=== PATIENT | female | born 1995 | race African-American/Black ===

== ENCOUNTER 2019-11-27 07:14 | Outpatient (CLI) | payer OTHER ==
--- NOTE | 2019-11-27 13:40 | MRI Report ---
Reason: RT KNEE PAIN Procedure Date: 11/27/2019 Accession Number: [id number] / [id number] Procedure: MRI - Knee RT W/O CPT Code: Final Report FULL RESULT: EXAM: RIGHT KNEE MRI WITHOUT CONTRAST EXAM DATE: 11/27/2019 08:20 AM. CLINICAL HISTORY: Right knee pain. Previous patellar dislocation. Previous knee surgery. COMPARISON: None. TECHNIQUE: Multiplanar, multisequence T1-weighted and fluid-sensitive sequences of the knee without contrast. Other: None. FINDINGS: Bones and articular cartilage: Small enthesophytes at the patella. No acute fracture or bone lesions. No subluxations. Tiny subcortical cyst and minimal subcortical marrow edema at the inferolateral aspect of the patella. Slight lateral subluxation of the patella by approximately 3.5 mm. Medial Meniscus: The medial meniscus is intact. Lateral Meniscus: The lateral meniscus is intact. Cruciate Ligaments: The anterior and posterior cruciate ligaments are intact. Collateral Ligaments: The medial collateral and lateral collateral ligamentous structures are intact. Tendons: The quadriceps, patellar, semimembranosus, and popliteus tendons are unremarkable. Musculature: No edema or fatty atrophy. Other: No effusion. No popliteal cyst. No loose bodies. The medial and lateral retinacula are intact. The subcutaneous tissues and fat pads are unremarkable. IMPRESSION: 1. Tiny subcortical cyst and minimal subcortical marrow edema at the inferolateral aspect of the patella. 2. Slight lateral subluxation of the patella. 3. Anterior patellar enthesophytes. 4. No ligament or meniscal tear. RADIA
== END 2019-11-27 07:15 | disposition home or self-care (01) ==
LOC: DI 07:14
PROVIDERS: ATTEND General Practice
DX: M85.68 Other cyst of bone, other site (principal); S83.011A Lateral subluxation of right patella, initial encounter; M77.8 Other enthesopathies, not elsewhere classified

== ENCOUNTER 2020-10-17 19:17 | Emergency (ER) | payer OTHER ==
[2020-10-17] MEDS ORDERED: SODIUM CHLORIDE 0.9% 1,000 ML IV STA (20:00)
[2020-10-17] MEDS ORDERED: diphenhydrAMINE INJ 50 MG/ML VIAL IVP STA (20:00)
--- NOTE | 2020-10-17 20:01 | ED Physician Documentation ---
History of Present Illness - Stated complaint Stated Complaint: PRESSURE BEHIND EYES, NAUSEA - Chief complaint Chief Complaint: General - Additonal information Additional information: 25-year-old female comes to the emergency department for evaluation of an ongoing headache for about 1 month. She reports constant pressure behind her eyes. No loss of vision or diplopia. She has been taking lamotrigine as well as propanolol for a history of migraines but they have not improved. She has been referred to a neurologist but has not seen that physician at this time however she did speak with the neurologist on the phone today and they requested she come to the ER for imaging to evaluate for pseudotumor cerebri. Patient has had no syncope or abdominal pain denies chest pain or chest pressure. Review of Systems Constitutional: denies: Fever, Chills Eyes: denies: Loss of vision, Decreased vision, Photophobia, Discharge Ears: reports: Reviewed and negative Nose: reports: Reviewed and negative Throat: reports: Reviewed and negative Cardiac: reports: Reviewed and negative Respiratory: reports: Reviewed and negative GI: reports: Reviewed and negative : reports: Reviewed and negative Skin: reports: Reviewed and negative Musculoskeletal: reports: Reviewed and negative Neurologic: reports: Headache Psychiatric: reports: Reviewed and negative PD PAST MEDICAL HISTORY - Past Medical History Past Medical History: Yes Respiratory: Asthma Neuro: Migraines [employer]PERATOR: Other Psych: Depression, Anxiety, Panic attacks - Past Surgical History Past Surgical History: Yes Ortho: Other - Present Medications Home Medications: Ambulatory Orders Medication Instructions Recorded Confirmed Albuterol 2.5 mg .ROUTE PRN PRN 10/17/20 10/17/20 Cyclobenzaprine [Flexeril] 20 mg PO BID 10/17/20 10/17/20 Drospirenone [Slynd] 4 mg PO DAILY 10/17/20 10/17/20 Famotidine [Acid-Pep] 20 mg PO DAILY 10/17/20 10/17/20 Propranolol [Inderal] 20 mg PO BID 10/17/20 10/17/20 Sertraline [Zoloft] 150 mg PO DAILY 10/17/20 10/17/20 hydrOXYzine HCL [Hydroxyzine HCl] 75 mg PO BID 10/17/20 10/17/20 - Allergies Allergies/Adverse Reactions: Allergies Allergy/AdvReac Type Severity Reaction Status Date / Time No Known Drug Allergies Allergy Verified 10/17/20 19:23 - Social History Does the pt smoke?: No Smoking Status: Never smoker Does the pt drink ETOH?: No Does the pt have substance abuse?: No - Immunizations Immunizations are current?: Yes - POLST Patient has POLST: No PD ED PE EXPANDED - General General: Alert, No acute distress, Well developed/nourished - HEENT HEENT: Atraumatic, PERRL, EOMI - Eyes Eyes: Other (Limited funduscopic with panoptic does not reveal obvious papilledema bilaterally) - Neck Neck: Supple w/out meningeal sx. No: Adenopathy - Cardiac Cardiac: Regular Rate, Regular Rhythm, Radial strong equal, Pedal strong equal, Cap refill < 2 sec - Respiratory Respiratory: Clear to ausultation digna. No: Distress, Labored - Abdomen Abdomen: Normal Bowel sounds. No: Tender to palpation - Extremities Extremities: Normal. No: Deformity - Neuro Neuro: Alert and Oriented X 3, CNII-XII intact, Cerebellar nl, Normal gait, Normal finger nose, Normal speech. No: Nystagmus - GCS Eye Opening: Spontaneous Motor: Obeys Commands Verbal: Oriented Total: 15 Results - Vitals Vitals: Vital Signs - 24 hr 10/17/20 10/17/20 19:23 19:41 Temperature 36.5 C Heart Rate 81 77 Respiratory 16 17 Rate Blood Pressure 136/89 H 131/95 H O2 Saturation 98 100 Oxygen O2 Source Room air - Labs Labs: Laboratory Tests 10/17/20 10/17/20 10/17/20 19:55 19:55 20:00 WBC 13.8 H RBC 4.49 Hgb 12.9 Hct 40.7 MCV 90.6 MCH 28.7 MCHC 31.7 L RDW 13.0 Plt Count 484 H MPV 9.8 Neut # (Auto) 9.8 H Lymph # (Auto) 2.8 Knox # (Auto) 0.6 Eos # (Auto) 0.5 Baso # (Auto) 0.1 Absolute Nucleated RBC 0.00 Nucleated RBC % 0.0 PT INR Sodium 143 Potassium 4.2 Chloride 99 L Carbon Dioxide 28 Anion Gap 16.0 H BUN 10 Creatinine 1.0 Estimated GFR (MDRD) 83 L Glucose 100 Calcium 9.8 Total Bilirubin 1.1 H AST 26 ALT 18 Alkaline Phosphatase 94 Total Protein 8.5 H Albumin 4.4 Globulin 4.1 Albumin/Globulin Ratio 1.1 Lipase 32 Urine Color YELLOW Urine Clarity CLEAR Urine pH 6.5 Ur Specific [place] 1.020 Urine Protein NEGATIVE Urine Glucose (UA) NEGATIVE Urine Ketones TRACE Urine Occult Blood NEGATIVE Urine Nitrite NEGATIVE Urine Bilirubin NEGATIVE Urine Urobilinogen 0.2 (NORMAL) Ur Leukocyte Esterase NEGATIVE Ur Microscopic Review NOT INDICATED Urine Culture Comments NOT INDICATED Urine HCG, Qual NEGATIVE 10/17/20 20:05 WBC RBC Hgb Hct MCV MCH MCHC RDW Plt Count MPV Neut # (Auto) Lymph # (Auto) Knox # (Auto) Eos # (Auto) Baso # (Auto) Absolute Nucleated RBC Nucleated RBC % PT 12.8 H INR 1.2 Sodium Potassium Chloride Carbon Dioxide Anion Gap BUN Creatinine Estimated GFR (MDRD) Glucose Calcium Total Bilirubin AST ALT Alkaline Phosphatase Total Protein Albumin Globulin Albumin/Globulin Ratio Lipase Urine Color Urine Clarity Urine pH Ur Specific [place] Urine Protein Urine Glucose (UA) Urine Ketones Urine Occult Blood Urine Nitrite Urine Bilirubin Urine Urobilinogen Ur Leukocyte Esterase Ur Microscopic Review Urine Culture Comments Urine HCG, Qual - Rads (name of study) CT head Radiology: Final report received (No acute intracranial abnormality) PD MEDICAL DECISION MAKING - ED course Complexity details: reviewed results, re-evaluated patient, considered differential, d/w patient ED course: 25-year-old female presents the emergency department for evaluation of 1 month of headache with eye pain and pressure. She has had no vomiting or fevers. Because of the ongoing headache her primary has referred her to a neurologist. Though she has not had the formal neurology consultation she did speak with the neurologist by phone this afternoon and he requested that she come to the ER for evaluation of possible pseudotumor cerebri. Here in the emergency department though she appears uncomfortable she has an intact neurological and cerebellar exam. Funduscopic exam completed both by myself and my colleague Dr. Klein did not reveal any papilledema. A CT of her head was completing and no acute intracranial findings were found. Her labs are reviewed. There is mild leukocytosis but no fevers and a normal cerebellar and given the ongoing headache for more than 1 month my suspicion for a viral or bacterial meningitis is exceedingly low. I did offer her the procedure of a lumbar puncture to check opening pressures of her CSF. Patient initially consented to the procedure and as we were in the middle of prepping her just prior to introduction of the needle the patient requested that we stop. She stated she no longer wanted to continue with the procedure. She stated that she was not upset and that she was not anxious but she simply wanted to go home to rest. I asked if I could provide her any additional pain medication or anxiolysis to complete the procedure and she declined. I asked if she had any questions about the procedure or was unclear about the procedure and she stated no that she simply did not want to pursue it anymore and requested to be discharged home. She did however reports some early mild improvement in her headache with compazine and benadryl. Departure - Departure Disposition: Home, Self Care Clinical Impression: Headache Qualifiers: Headache type: unspecified Headache chronicity pattern: unspecified pattern Intractability: not intractable Qualified Code(s): R51.9 - Headache, unspecified Condition: Stable Record reviewed to determine appropriate education?: Yes Comments: Loraine duckworth were seen in the emergency department today for a headache and eye pain/pressure that has been ongoing for one month. The CT scan of your head did not show any worrisome findings. An exam of your optic discs did not show papilledema or swelling. Your neurologist was concerned that you may have a condition called pseudotumor cerebri. We offered you a lumbar puncture in order to check the opening pressures in your cerebrospinal fluid. However you declined to this procedure. You may return at any point for reevaluation. Please discuss this ED visit with your primary doctor and continue to follow-up with neurology. If at any point you feel that your symptoms are worsening, you have loss of vision, uncontrolled vomiting or fevers please return immediately to the ER. Please continue all other medications as previously prescribed.
[2020-10-17 20:08] LABS: BILIRUBIN,URINE NEGATIVE (NEGATIVE); GLUCOSE, URINE (UA) NEGATIVE (NEGATIVE); KETONES,URINE (UA) TRACE mg/dL (NEGATIVE); LEUKOCYTE ESTERASE, URINE NEGATIVE (NEGATIVE); NITRITE,URINE NEGATIVE (NEGATIVE); OCCULT BLOOD,URINE NEGATIVE (NEGATIVE); PH,URINE 6.5 PH (5.0-7.5); PROTEIN,URINE NEGATIVE (NEGATIVE); UROBILINOGEN,URINE 0.2 (NORMAL) E.U./dL (NORMAL)
[2020-10-17 20:10] LABS: CLARITY,URINE CLEAR (CLEAR); HCG UR QUAL NEGATIVE
[2020-10-17 20:13] LABS: BASOPHILS # (AUTO) 0.1 10^3/uL (0.0-0.1); BASOPHILS % (AUTO) 0.8 %; EOSINOPHILS # (AUTO) 0.5 10^3/uL (0.0-0.7); EOSINOPHILS % (AUTO) 3.6 %; HGB - HEMOGLOBIN 12.9 g/dL (12.0-16.0); LYMPHOCYTES # (AUTO) 2.8 10^3/uL (1.5-3.5); MEAN CORPUSCULAR HEMOGLOBIN 28.7 pg (27.0-31.0); MEAN CORPUSCULAR HGB CONC 31.7 g/dL (32.0-36.0); MEAN CORPUSCULAR VOLUME 90.6 fL (81.0-99.0); MEAN PLATELET VOLUME 9.8 fL (7.9-10.8); MONOCYTES # (AUTO) 0.6 10^3/uL (0.0-1.0); MONOCYTES % (AUTO) 4.1 %; NEUTROPHILS # (AUTO) 9.8 10^3/uL (1.5-6.6); NEUTROPHILS % (AUTO) 71.2 %; PLT - PLATELET COUNT 484 10^3/uL (130-450); RED BLOOD COUNT 4.49 10^6/uL (4.20-5.40); WHITE BLOOD COUNT 13.8 x10^3/uL (4.8-10.8)
[2020-10-17 20:26] LABS: INR 1.2 (0.8-1.2); PT - PROTHROMBIN TIME 12.8 secs (9.9-12.6)
[2020-10-17 20:26] LABS: ALBUMIN 4.4 g/dL (3.2-5.5); ALBUMIN/GLOBULIN RATIO 1.1 (1.0-2.2); BILIRUBIN,TOTAL 1.1 mg/dL (0.2-1.0); CALCIUM 9.8 mg/dL (8.5-10.3); TOTAL PROTEIN 8.5 g/dL (6.7-8.2)
[2020-10-17] MEDS ORDERED: PROCHLORPERAZINE 10 MG/2 ML VIAL IVP STA (20:27)
--- NOTE | 2020-10-17 20:36 | CT Report ---
PROCEDURE: HEAD WO INDICATIONS: ? pseudotumo cerebri TECHNIQUE: Noncontrast 4.5 mm thick angled axial sections acquired from the foramen magnum to the vertex. For r adiation dose reduction, the following was used: automated exposure control, adjustment of mA and/or kV according to patient size. COMPARISON: None. FINDINGS: Image quality: Excellent. CSF spaces: Basal cisterns are patent. No extra-axial fluid collections. Ventricles are normal in size and shape. Brain: No midline shift. No intracranial masses or hemorrhage. Gomes-white matter interface is norm al. Skull and face: Calvarium and visualized facial bones are intact, without suspicious lesions. Sinuses: Visualized sinuses and mastoids are clear. IMPRESSION: No acute intracranial abnormality. Reviewed by: Honey Maddox MD on 10/17/2020 8:34 PM PST Approved by: Honey Maddox MD on 10/17/2020 8:34 PM PST Station ID: [id number]
[2020-10-17 21:48] VITALS: BP 122/84
== END 2020-10-17 21:59 | disposition home or self-care (01) ==
LOC: ED 19:17
DX: R51.9 Headache, unspecified (principal); H57.10 Ocular pain, unspecified eye; D72.829 Elevated white blood cell count, unspecified; Z86.69 Personal history of other diseases of the nervous system and sense organs; Z53.29 Procedure and treatment not carried out because of patient's decision for other reasons
CPT/HCPCS: 36415; 70450; 80053; 81003; 81025; 83690; 85025; 85610; 96374; 96375; 99284; J1200; 81001; 87086